=== PATIENT | male | born 1955 | race Caucasian/White ===

== ENCOUNTER → 2020-07-22 | Outpatient (CLI) | payer MEDICARE, OTHER ==
--- NOTE | 2020-07-22 09:41 | RAD ---
Left knee 3 views. HISTORY: Chronic pain, fell off roof one year ago. 3 views were taken the left knee. There is not evidence of an acute fracture or joint effusion. There is slight spurring in the medial joint compartment suggesting mild arthritis. There is mild joint sp elaine narrowing medially. IMPRESSION: 1. No acute fracture. 2. Mild arthritis left knee. Electronically signed by: Neil Momin MD (07/22/2020 9:39 AM) [id number]
--- NOTE | 2020-07-22 09:44 | RAD ---
INDICATION: Reason: CHRONIC PAIN, FALL OFF ROOF 1 YEAR AGO / Spl. Instructions: / History: COMPARISON: None. IMPRESSION: Right shoulder: 3 views obtained. Degenerative changes are identified of the shoulder with osteophyte formation. There is also some degeneration at the acromioclavicular joint with hypertrophic changes. No acute fracture or dislocation Electronically signed by: Ashok Strong MD (07/22/2020 9:41 AM) [id number]
== END ==
LOC: RAD 09:15
PROVIDERS: ATTEND Family Medicine
DX: M17.12 Unilateral primary osteoarthritis, left knee (principal); M19.011 Primary osteoarthritis, right shoulder; M25.711 Osteophyte, right shoulder; G89.29 Other chronic pain
CPT/HCPCS: 73030; 73562